=== PATIENT | female | born 1980 | race Caucasian/White ===

== ENCOUNTER 2024-02-29 14:20 | Emergency (ER) | payer SELFPAY ==
[~2024-02-29] VITALS: Ht 167.6 cm; Wt 56.0 kg
[2024-02-29 14:25] VITALS: O2SAT 98
[2024-02-29 15:30] VITALS: TEMP 98.5
[2024-02-29] MEDS: ACETAMINOPHEN 325MG TABLET PO ONE (15:30)
[2024-02-29] MEDS ORDERED: NAPR220C61 MT (16:52)
[2024-02-29 17:00] VITALS: BP 118/74; PULSE 72; RESP 14
[2024-02-29] MEDS: IBUPROFEN 600MG TABLET PO ONE (17:00)
== END 2024-02-29 19:30 | disposition home or self-care (01) ==
LOC: ER 15:20
DX: S09.90XA Unspecified injury of head, initial encounter (principal); G89.11 Acute pain due to trauma; V49.9XXA Car occupant (driver) (passenger) injured in unspecified traffic accident, initial encounter; Y93.89 Activity, other specified; Y92.89 Other specified places as the place of occurrence of the external cause; Y99.8 Other external cause status
CPT/HCPCS: 81025; 99284